=== PATIENT | female | born 2000 | race Caucasian/White ===

== ENCOUNTER 2021-08-18 10:50 | Emergency (ER) | payer BC, SELFPAY ==
--- NOTE | 2021-08-18 10:59 | ED.URI ---
HPI - URI/Sore Throat General Chief Complaint: Upper Respiratory Infection Stated Complaint: Throat pain Time Seen by Provider: 08/18/21 10:59 Source: patient, family and RN notes reviewed Mode of arrival: ambulatory Limitations: no limitations History of Present Illness HPI Narrative: 21-year-old female presents to the [facility] with painful swallowing, sore throat since Wednesday, 3 days. Has tried ibuprofen with no relief. Denies fevers, chest pain, abdominal pain. Has tried [id number] products with no relief. MD elicited complaint: sore throat Related Data Allergies Allergy/AdvReac Type Severity Reaction Status Date / Time Penicillins Allergy Intermediate hives Verified 07/12/17 16:00 Review of Systems Review of Systems: All systems reviewed & are unremarkable except as noted in HPI and below Constitutional: Constitutional: Reports no additional constitutional complaints, Denies chills, Denies fever(s) and Denies headache(s) Eyes: Eyes: Reports no additional eye complaints ENT: Reports as per HPI, Denies vertigo, Denies dizziness, Denies headache(s), Denies nasal congestion and Reports sore throat Cardiovascular: Cardiovascular: Reports no additional cardiovascular complaints, Denies chest pain, Denies syncope, Denies rapid heart rate and Denies dyspnea Respiratory: Respiratory: Reports no additional respiratory complaints, Denies cough, Denies dyspnea and Denies wheezing Gastrointestinal: Gastrointestinal: Reports no additional gastrointestinal complaints, Denies abdominal pain, Denies diarrhea, Denies nausea and Denies vomiting Musculoskeletal: Musculoskeletal: Reports no additional musculoskeletal complaints and Denies numbness Integumentary/Breasts: Skin/Breast: Reports system reviewed and no additional complaints, except as docu Neurologic: Reports system reviewed and no additional complaints, except as documented, Denies vertigo, Denies dizziness, Denies syncope, Denies headache(s), Denies focal weakness and Denies numbness Psychiatric: Psychiatric: Reports no additional psychiatric complaints Allergic/Immunologic: Allergic/Immunologic: Reports no additional allergic/immunologic complaints and Denies wheezing PMFSH Past Medical History Medical History (Updated 08/18/21 @ 19:15 by Rochelle Venegas APRN) No significant medical problems Surgical History Surgical History (Updated 08/18/21 @ 19:15 by Rochelle Venegas APRN) No pertinent past surgical history Social History Social History (Updated 08/18/21 @ 19:15 by MANSOOR Dior Gender identity (if verbalized by the patient): Female Comments At the time of my signature, I reviewed and agree with the nursing past medical, surgical, social, and family history. There is no relevant family history pertinent to the patient complaint. Exam Const: General: cooperative, healthy appearing, no acute distress, well developed and alert Nutritional Appearance: well nourished Orientation/consciousness: patient oriented x3 Limitations: no limitations HENMT: Head: normal to inspection Ears: external ears normal, TM's normal bilaterally and EAC's normal General nose exam: Normal external nose present Face and sinus: normal facial exam Mouth: Yes Normal oral and palatal mucosa present Throat: uvula midline and abnormal tonsil bilateral erythema, exudates and hypertrophy 2+ Eyes: Conjunctivae: conjunctivae normal Pupils: Equal, round and reactive pupils present Neck: Neck: normal visual inspection, no lymphadenopathy and no meningeal signs Chest: Chest palpation & inspection: normal inspection of the chest Resp: Effort & Inspection: normal respiratory effort and no use of accessory muscles Auscultation: clear to auscultation bilaterally, no crackles, no rales, no rhonchi and no wheezes Cardio: Rate: regular rate Rhythm: regular rhythm Skin: General skin exam: normal color Rashes: no rashes Wounds: no wounds Neuro: General: patient oriented x
[2021-08-18 11:07] VITALS: BP 110/78; PULSE 112; RESP 18; TEMP 37.1; O2SAT 99
[2021-08-18 11:19] VITALS: BP 110/78; PULSE 112; RESP 18; TEMP 37.1; O2SAT 99
== END 2021-08-18 11:28 | disposition home or self-care (01) ==
PROVIDERS: Emergency Provider Nurse Practitioner
DX: J03.90 Acute tonsillitis, unspecified (principal)
CPT/HCPCS: 87081; 87880; 99213; G0463

== ENCOUNTER 2022-03-15 13:02 | Emergency (ER) | payer BC, SELFPAY ==
[2022-03-15 13:10] VITALS: BP 107/64; PULSE 70; RESP 16; TEMP 36.1; O2SAT 99
--- NOTE | 2022-03-15 13:45 | ED.FEMALEGU ---
HPI - Female Genitourinary General Chief complaint: Urogenital-Female Stated complaint: UTI Time Seen by Provider: 03/15/22 13:20 Source: patient Mode of arrival: ambulatory Limitations: no limitations History of Present Illness HPI Narrative: Mrs. Santoyo is a 21-year-old female patient presenting to the clinic today with complaints of possible UTI. She reports that 2 days ago she developed some bladder pain. She is currently on her menses. States that she is having a lot of discomfort with urination. She denies any fever or chills. She denies any lower abdominal pain or flank pain. She has taken Azo for her symptoms. Related Data Allergies Allergy/AdvReac Type Severity Reaction Status Date / Time Penicillins Allergy Intermediate hives Verified 03/15/22 13:39 Review of Systems Review of Systems: Pertinent positives per HPI. Patient denies any fever, chills, rash, headache, visual changes, dizziness, cough, runny nose, sore throat, shortness of breath, chest pain, palpitations, nausea, vomiting, diarrhea, constipation, abdominal pain. PMFSH Past Medical History Medical History No significant medical problems Surgical History Surgical History No pertinent past surgical history Social History Social History Gender identity (if verbalized by the patient): Female Comments At the time of my signature, I reviewed and agree with the nursing past medical, surgical, social, and family history. There is no relevant family history pertinent to the patient complaint. Exam Narrative: General: Well-developed, well nourished, in no apparent distress. Head: Normocephalic, atraumatic. Cardio: Regular rate and rhythm, s1 and s2 normal, no murmur appreciated. Resp: Clear to auscultation bilaterally, no rhonchi, rales, wheezing or rubs. Abdomen: Soft, pliable, bowel sounds present in all quadrants, non-tender to palpation, no organomegly, no CVAT tenderness. Course Course Emergency Course: Portions of this record may have been created with voice recognition software. Level of Care: Express Care Visit Vital Signs Vital signs: Vital Signs Temperature 36.1 C L 03/15/22 13:10 Pulse Rate 70 03/15/22 13:10 Respiratory Rate 16 03/15/22 13:10 Blood Pressure 107/64 03/15/22 13:10 Pulse Oximetry 99 03/15/22 13:10 Oxygen Delivery Room Air 03/15/22 13:10 Temperature 36.1 C L 03/15/22 13:10 Pulse Rate 70 03/15/22 13:10 Respiratory Rate 16 03/15/22 13:10 Blood Pressure 107/64 03/15/22 13:10 Pulse Oximetry 99 03/15/22 13:10 Oxygen Delivery Room Air 03/15/22 13:10 Vital signs reviewed MDM - Female Genitourinary MDM Narrative Medical decision making narrative: At the time of visit patient is resting comfortably on the exam table. I suspect the patient has a urinary tract infection. Her Azo test was skewed the urine results however she is having bladder pain and discomfort with urination so I will go ahead and treat her with some Macrobid and send her urine for culture. Supportive measures were discussed with the patient and she voiced understanding of discharge instructions. Differential Diagnosis Differential diagnosis: Likely urinary tract infection, cystitis and other Lab Data Labs: Urine Glucose 1+ Reference Range: Negative Urine Bilirubin 1+ Reference Range: Negative Urine Ketone Trace Reference Range: Negative Urine Specific Firth 1.015 Reference Range:1.001-1.035 Urine Blood 3+
== END 2022-03-15 13:52 | disposition home or self-care (01) ==
PROVIDERS: Emergency Provider Nurse Practitioner Family
DX: N39.0 Urinary tract infection, site not specified (principal)
CPT/HCPCS: 81003; 87086; 99213; G0463

== ENCOUNTER 2023-05-01 15:38 | Emergency (ER) | payer BC, SELFPAY ==
[2023-05-01 15:49] VITALS: BP 111/75; PULSE 79; RESP 16; TEMP 37.3; O2SAT 99
--- NOTE | 2023-05-01 15:56 | ED.GENADULT ---
HPI - General Adult General Chief complaint: Skin/Abscess/Foreign Body Stated complaint: herpes outbreak Time Seen by Provider: 05/01/23 15:50 Source: patient Mode of arrival: ambulatory Limitations: no limitations History of Present Illness HPI narrative: Seema is a 23-year-old female patient presenting to the clinic today with complaints of a possible herpes outbreak. She reports she is having pain in her rectum with some herpetic lesions. She reports that she has had this before and was prescribed some medication to apply to her anus as well as acyclovir. She reports symptoms have been going on for 1-2 days. Reports that the area is burning/tingling Related Data Allergies Allergy/AdvReac Type Severity Reaction Status Date / Time Penicillins Allergy Intermediate hives Verified 05/01/23 15:40 Review of Systems Review of Systems: Pertinent positives per HPI. Patient denies any fever, chills, rash, headache, visual changes, dizziness, cough, runny nose, sore throat, shortness of breath, chest pain, palpitations, nausea, vomiting, diarrhea, constipation, abdominal pain, or any urinary issues. PMFSH Past Medical History Medical History No significant medical problems Surgical History Surgical History No pertinent past surgical history Social History Social History Gender identity (if verbalized by the patient): Female Comments At the time of my signature, I reviewed and agree with the nursing past medical, surgical, social, and family history. There is no relevant family history pertinent to the patient complaint. Exam Narrative: General: Well-developed, well nourished, in no apparent distress. Head: Normocephalic, atraumatic. Cardio: Regular rate and rhythm, s1 and s2 normal, no murmur appreciated. Resp: Clear to auscultation bilaterally, no rhonchi, rales, wheezing or rubs. Abdomen: Soft, pliable, bowel sounds present in all quadrants, non-tender to palpation, no organomegly, no CVAT tenderness. Rectum: Deferred-patient declined exam Course Course Emergency Course: Portions of this record may have been created with voice recognition software. Level of Care: Express Care Visit Vital Signs Vital signs: Vital Signs Temperature 37.3 C 05/01/23 15:49 Pulse Rate 79 05/01/23 15:49 Respiratory Rate 16 05/01/23 15:49 Blood Pressure 111/75 05/01/23 15:49 Pulse Oximetry 99 05/01/23 15:49 Oxygen Delivery Room Air 05/01/23 15:49 Temperature 37.3 C 05/01/23 15:49 Pulse Rate 79 05/01/23 15:49 Respiratory Rate 16 05/01/23 15:49 Blood Pressure 111/75 05/01/23 15:49 Pulse Oximetry 99 05/01/23 15:49 Oxygen Delivery Room Air 05/01/23 15:49 Vital signs reviewed Medical Decision Making MDM Narrative Medical decision making narrative: At the time of visit patient is resting on the exam table. Patient is very nervous and declines a rectal exam at this time. She reports that she has had this before and they gave for acyclovir and a lidocaine cream for her anus. She is requesting same treatment if possible. Recommend follow-up with her PCP. Supportive measures were discussed with the patient she voiced understanding discharge instructions and agrees to treatment plan Differential Diagnosis Differential Diagnosis: Genital herpes, anal warts, hemorrhoids, anal fissure Vital Signs Vital Signs: Vital Signs Temperature 37.3 C 05/01/23 15:49 Pulse Rate 79 05/01/23 15:49 Respiratory Rate 16 05/01/23 15:49 Blood Pressure 111/75 05/01/23 15:49 Pulse Oximetry 99 05/01/23 15:49 Oxygen Delivery Room Air 05/01/23 15:49 Temperature 37.3 C 05/01/23 15:49 Pulse Rate 79 05/01/23 15:49 Respiratory Rate 16 05/01/23 15:49 Blood Pressure 111/75 05/01/23 15:49
== END 2023-05-01 16:05 | disposition home or self-care (01) ==
PROVIDERS: Emergency Provider Nurse Practitioner Family
DX: A06.1 Chronic intestinal amebiasis (principal)
CPT/HCPCS: 99213; G0463

== ENCOUNTER 2023-11-17 18:52 | Emergency (ER) | payer SELFPAY ==
[2023-11-17 19:15] VITALS: BP 127/80; PULSE 87; RESP 16; TEMP 37.1; O2SAT 100
--- NOTE | 2023-11-17 19:24 | ED.FEMALEGU ---
HPI - Female Genitourinary General Chief complaint: Urogenital-Female Stated complaint: Vaginal Problems Time Seen by Provider: 11/17/23 19:25 Source: patient and RN notes reviewed Mode of arrival: ambulatory Limitations: no limitations History of Present Illness HPI Narrative: 23-year-old female presented for concern of genital HSV outbreak. endorses itching and mild burning over the past few days. States today she saw a lesion to left labia. Hx HSV. Patient is currently on her menses. Denies vaginal discharge or concern for STD. Denies urinary symptoms or concern for UTI. Related Data Allergies Allergy/AdvReac Type Severity Reaction Status Date / Time Penicillins Allergy Intermediate hives Verified 11/17/23 19:17 Review of Systems Review of Systems: CONSTITUTIONAL: Denies body aches, fever, chills, or sweats. CARDIOVASCULAR: Denies chest pain, palpitations, or edema. RESPIRATORY: Denies cough or dyspnea. GASTROINTESTINAL: Denies abdominal pain, nausea, vomiting, or diarrhea. GENITOURINARY: Reports vaginal itching/ burning Denies dysuria, frequency, urgency, hematuria, flank pain SKIN: Denies rash, itching, or wounds. MUSCULOSKELETAL: Denies back pain or myalgia. [facility] Past Medical History Medical History No significant medical problems Surgical History Surgical History No pertinent past surgical history Social History Social History Gender identity (if verbalized by the patient): Female Comments At time of signature, I have reviewed and agree with nursing past medical, surgical, social and family history unless otherwise noted. Please see nursing chart for further information. There is no relevant family history pertinent to the presenting complaint Exam Narrative: GENERAL: Well-appearing and in no acute distress. ENT: Mucous membranes pink and moist. CHEST: No respiratory distress. Clear to auscultation. HEART: Regular rate and rhythm. ABDOMEN: Soft, nontender, nondistended, normal active bowel sounds. No CVA tenderness : speculum exam deferred: No swelling. External vaginal exam on menses; cluster of vesicular lesions at 6oclock position of vaginal introitus; tender. Chaperoned by Ilana KIM SKIN: Warm, dry, NEURO: No focal deficits. Alert and oriented x3. Gait steady. PSYCH: Normal affect. Course Course Emergency Course: Patient is aware of diagnosis, understands and agrees to treatment plan. Anticipatory guidance given. Patient agrees to follow-up as directed and is aware of reasons to seek care at the emergency department. Portions of this record may have been created with voice recognition software Level of Care: Express Care Visit Vital Signs Vital signs: Vital Signs Temperature 98.8 F 11/17/23 19:15 Pulse Rate 87 11/17/23 19:15 Respiratory Rate 16 11/17/23 19:15 Blood Pressure 127/80 11/17/23 19:15 Pulse Oximetry 100 11/17/23 19:15 Oxygen Delivery Room Air 11/17/23 19:15 Temperature 98.8 F 11/17/23 19:15 Pulse Rate 87 11/17/23 19:15 Respiratory Rate 16 11/17/23 19:15 Blood Pressure 127/80 11/17/23 19:15 Pulse Oximetry 100 11/17/23 19:15 Oxygen Delivery Room Air 11/17/23 19:15 Reviewed MDM - Female Genitourinary MDM Narrative Medical decision making narrative: Discussed physical exam findings and Rx. Advised supportive measures and signs/symptoms to go to the ER. Pt is appropriate for outpt treatment and f/u. plans to establish with OBGYN Differential Diagnosis Differential diagnosis: Likely urinary tract infection, bacterial vaginosis, vaginitis, cystitis and other (HSV) Discharge Plan Discharge Clinical Impression: Genital HSV Patient Disposition: Home, Self-Care Condition: Stable Instructions: Antibiotic Form, Genital Herpes Infe
== END 2023-11-17 19:47 | disposition home or self-care (01) ==
PROVIDERS: Emergency Provider Nurse Practitioner Family
DX: A60.00 Herpesviral infection of urogenital system, unspecified (principal)
CPT/HCPCS: 99213; G0463

== ENCOUNTER 2024-10-12 11:47 | Emergency (ER) | payer BC, SELFPAY ==
[2024-10-12 11:55] VITALS: BP 113/73; PULSE 112; RESP 19; TEMP 36.6; O2SAT 98
[2024-10-12 12:08] LABS: EDUAAPPEAR Cloudy; EDUABILI Negative (Negative); EDUABLOOD 3+ (Negative); EDUACOLOR1 Dark; EDUAGLUCOSE Negative (Negative); EDUAKETONE Negative (Negative); EDUALEUKO 1+ (Negative); EDUANITRATE Negative (Negative); EDUAPH 5.5; EDUAPROTEIN 3+ (Negative); EDUAUROBILI 0.2
--- NOTE | 2024-10-12 12:10 | ED.FEMALEGU ---
HPI - Female Genitourinary General Chief complaint: Urogenital-Female Stated complaint: UTI Time Seen by Provider: 10/12/24 12:11 Source: patient, RN notes reviewed and old records reviewed Mode of arrival: ambulatory Limitations: no limitations History of Present Illness HPI Narrative: 24-year-old female presents to the [facility] with concerns for a UTI. Patient reports frequency and urgency and cloudy urine as well as pain that started yesterday. Took azo yesterday. No treatment today Related Data Home Medications ?Medication ?Instructions ?Recorded ?Confirmed ?Last Taken ?Type valacyclovir 500 mg tablet mg 10/12/24 Unknown History Allergies Allergy/AdvReac Type Severity Reaction Status Date / Time Penicillins Allergy Intermediate hives Verified 10/12/24 12:08 Review of Systems Review of Systems: All systems reviewed & are unremarkable except as noted in HPI and below Constitutional: Constitutional: Reports no additional constitutional complaints ENT: Reports system reviewed and no additional complaints, except as documented Cardiovascular: Cardiovascular: Reports no additional cardiovascular complaints, Denies chest pain and Denies dyspnea Respiratory: Respiratory: Reports no additional respiratory complaints, Denies chest congestion, Denies cough and Denies dyspnea Genitourinary: Genitourinary: Reports as per HPI Musculoskeletal: Musculoskeletal: Reports no additional musculoskeletal complaints Integumentary/Breasts: Skin/Breast: Reports system reviewed and no additional complaints, except as docu PMFSH Past Medical History Medical History No significant medical problems Surgical History Surgical History No pertinent past surgical history Social History Social History Gender identity (if verbalized by the patient): Female Comments At the time of my signature, I reviewed and agree with the nursing past medical, surgical, social, and family history. There is no relevant family history pertinent to the patient complaint. Exam Const: General: cooperative, healthy appearing, comfortable, no acute distress, well developed, alert and well nourished Nutritional Appearance: well nourished Orientation/consciousness: patient oriented x3 Limitations: no limitations HENMT: Head: normal to inspection Eyes: General: appearance normal, both eyes and all related structures Alignment and Position: alignment normal Neck: Neck: normal visual inspection, full ROM, no lymphadenopathy and no meningeal signs Chest: Chest palpation & inspection: normal inspection of the chest Resp: Effort & Inspection: normal respiratory effort and able to speak in complete sentences Auscultation: clear to auscultation bilaterally, no crackles, no rales, no rhonchi and no wheezes Cardio: Rate: regular rate GI: GI Palp: No abdominal tenderness : General: Yes no CVA tenderness Skin: General skin exam: normal color and no rashes or lesions noted Neuro: General: patient oriented x3, gait normal, moves all extremities and no meningeal signs Cognition (Neuro): normal cognition Speech: normal speech Gait exam (Neuro): Normal gait present Extrem: General: normal to inspection, full ROM, capillary refill normal and normal gait Psych: Appearance: grossly normal and well kempt Mental Status: mental status grossly normal Speech and movement: Normal speech and movement present and Clear speech present Affect: normal affect Attitude: cooperative Course Course Level of Care: Express Care Visit Vital Signs Vital signs: Vital Signs Temperature 98 F 10/12/24 11:55 Pulse Rate 112 H 10/12/24 11:55 Respiratory Rate 19 10/12/24 11:55 Blood Pressure 113/73 10/12/24 11:55 Pulse Oximetry 98 10/12/24 11:55 Oxygen Delivery Room Air 10/12/24 11:55 Temperature 98 F 10/12/24 11:55 Pulse Rate 112 H 10/12/24 11:55 Respiratory Rate 19 10/12/24 11:55 Blood Pressure 113/73 10/12/24 11:55 Pulse Oximetry 98 10/12/24 11:55 Oxygen Delivery Room Air 10/12/24 11:55 Reviewed MDM - Female Genitourinary MDM Narrative Medical decision making narrative: Patient sitting in exam room patient is nontoxic, vitals stable. Patient urine shows leukocytes, blood. Will treat with antibiotic, send culture Patient appropriate for outpatient treatment with close follow-up Discharge instructions reviewed with patient, as well as provided in writing per nursing staff. The instructions also include specific and strict return/GO TO THE ER as well as f/u information. All questions have been answered, and the patient deny any further questions with discharge and discharge plan. Some parts of this dictation were generated by voice recognition software and may contain typographical and/or grammatical inaccuracies. Differential Diagnosis Differential diagnosis: Likely urinary tract infection and cystitis Lab Data Labs: Lab Results 10/12/24 Range/Units 12:04 POC Urine Color Dark POC Urine Clarity Cloudy POC Urine pH 5.5 POC Ur Specif Switchback 1.030 POC Urine Protein 3+ (Negative) POC Ur Glucose (UA) Negative (Negative) POC Urine Ketones Negative (Negative) POC Urine Blood 3+ (Negative) POC Urine Nitrite Negative (Negative) POC Urine Bilirubin Negative (Negative) POC Urine Urobilinogen 0.2 POC U Leukocyte Esteras 1+ (Negative) Critical Care Time Critical Care Time Critical Care Time: No Discharge Plan Discharge Clinical Impression: Urinary tract infection Patient Disposition: Home Condition: Stable Instructions: Antibiotic Form, Urinary Tract Infection in Women (DC) Additional Instructions: Increased water intake Take Tylenol as needed for pain Take antibiotic as prescribed Today your urine dip showed a probability of a UTI. You have been prescribed an antibiotic. Your urine will be sent to our lab for a culture. If at that time a bacteria grows that is not covered by the antibiotic prescribed you will be notified. Follow-up with primary care For new or worsening symptoms go directly to the emergency room Patient Language: Romansh Prescriptions: New nitrofurantoin monohyd/m-cryst [Macrobid] 100 mg capsule 100 mg PO Q12H 5 Days Qty: 10 0RF Rx Instructions: must administer with a meal/food No Action valacyclovir 500 mg tablet Follow-up/Referrals: PHYSICIAN,SPECIAL ED ASSISTANT [Primary Care Provider] - Stand Alone Forms: Work/School Release IP Time of Disposition: 12:31
== END 2024-10-12 12:35 | disposition home or self-care (01) ==
PROVIDERS: Emergency Provider Nurse Practitioner
DX: N39.0 Urinary tract infection, site not specified (principal)
CPT/HCPCS: 81003; 87086; 87186; 99213; G0463